=== PATIENT | female | born 1970 | race Caucasian/White ===

== ENCOUNTER → 2020-05-16 | Outpatient (CLI) | payer BC, OTHER | LOC: SJCVCIMAG 07:08 | PROVIDERS: ATTEND Podiatrist | DX: I70.203 Unspecified atherosclerosis of native arteries of extremities, bilateral legs (principal) ==

== ENCOUNTER → 2020-05-24 | Outpatient (CLI) | payer BC, OTHER ==
[~2020-05-24] VITALS: Ht 167.6 cm; Wt 147.4 kg
[~2020-05-24] MED LIST: ALEVE220 M1 PO; ALLEGRA ALLERG180 MG PO; BRINTELLIX20 MG PO; BUPROPION XL300 MG PO; LISINOPRIL20 MG PO; METFORMIN HCL500 M3 PO; NASACORT10.8 ML NARES; NUVIGIL250 MG PO; OLOPATADINE HC2.5 ML OPHTHALMIC; OMEPRAZOLE40 MG PO; REXULTI0.25 MG PO; SUPER THERAVIT1 EACH PO; SYNTHROID175 MCG PO; SYNTHROID200 MCG PO; VITAMIN D31250 MC1 PO; VYVANSE70 MG PO; XYREM500 MG/1 M PO
[2020-05-24 08:16] LABS: HEMATOCRIT 42.1 % (37.0-47.0); HEMOGLOBIN 13.8 gm/dL (12.0-15.0); MCH 26.8 pg (26.0-34.0); MCHC 32.8 g/dL (28.0-37.0); MCV 81.8 fL (80.0-100.0); RBC 5.15 mil/uL (4.20-5.00); RDW 13.9 % (10.5-14.5); WBC 5.9 thou/uL (4.0-11.0)
[2020-05-24 08:20] LABS: CALCIUM 9.2 mg/dL (8.5-10.1); POTASSIUM 3.6 mmol/L (3.5-5.1)
== END | disposition home or self-care (01) ==
LOC: CATH 07:30
PROVIDERS: ATTEND Nuclear Medicine Nuclear Cardiology
DX: E11.51 Type 2 diabetes mellitus with diabetic peripheral angiopathy without gangrene (principal); I70.213 Atherosclerosis of native arteries of extremities with intermittent claudication, bilateral legs; I70.1 Atherosclerosis of renal artery; I10 Essential (primary) hypertension; I25.10 Atherosclerotic heart disease of native coronary artery without angina pectoris; E03.9 Hypothyroidism, unspecified; G47.30 Sleep apnea, unspecified; F32.9 Major depressive disorder, single episode, unspecified; F41.9 Anxiety disorder, unspecified; K21.9 Gastro-esophageal reflux disease without esophagitis; Z98.890 Other specified postprocedural states; Z79.899 Other long term (current) drug therapy; Z88.0 Allergy status to penicillin; Z88.2 Allergy status to sulfonamides; Z88.8 Allergy status to other drugs, medicaments and biological substances

== ENCOUNTER → 2020-05-29 | Outpatient (CLI) | payer OTHER ==
[~2020-05-29] MED LIST changes: +ASA81BEC PO; +PLAVIX 75 MG TA75 M1 PO
== END ==
LOC: CAT 09:08
PROVIDERS: ATTEND Nuclear Medicine Nuclear Cardiology
DX: Z13.6 Encounter for screening for cardiovascular disorders (principal); I25.10 Atherosclerotic heart disease of native coronary artery without angina pectoris; E78.00 Pure hypercholesterolemia, unspecified

== ENCOUNTER → 2020-05-31 | Outpatient (CLI) | payer BC, OTHER ==
[~2020-05-31] VITALS: Ht 167.6 cm; Wt 147.4 kg
[2020-05-31 08:49] VITALS: BP 154/75
--- NOTE | 2020-05-31 15:16 | NUR ---
PT'S FACE IS FLUSHED RED THAT EXTENDS TO NECK. PT HAS LIGHT PINK COLOURING TO UPPER ABDOMEN WELL. PT HAS ALLERGIES TO PCN, CEFTIN, CODEINE, AND SULFA. PT DENIES ALLERGIES TO SHELLFISH, AND CANNOT REMEMBER IF SHE HAS EVER HAD CONTRAST DYE BEFORE. MEDS GIVEN PER OK BY DR HOLMAN. PT DENIES ANY ITCHING.
== END | disposition home or self-care (01) ==
LOC: CATH 07:41
PROVIDERS: ATTEND Nuclear Medicine Nuclear Cardiology
DX: I70.211 Atherosclerosis of native arteries of extremities with intermittent claudication, right leg (principal); M79.604 Pain in right leg; L60.8 Other nail disorders; I10 Essential (primary) hypertension; E11.9 Type 2 diabetes mellitus without complications; E03.9 Hypothyroidism, unspecified; F32.9 Major depressive disorder, single episode, unspecified; F41.9 Anxiety disorder, unspecified; K21.9 Gastro-esophageal reflux disease without esophagitis; E66.09 Other obesity due to excess calories; Z98.890 Other specified postprocedural states; Z79.899 Other long term (current) drug therapy; Z88.0 Allergy status to penicillin; Z88.2 Allergy status to sulfonamides; Z88.8 Allergy status to other drugs, medicaments and biological substances

== ENCOUNTER → 2020-07-04 | Outpatient (CLI) | payer BC, OTHER | LOC: SJCVCIMAG 09:36 | PROVIDERS: ATTEND Nuclear Medicine Nuclear Cardiology | DX: T82.856A Stenosis of peripheral vascular stent, initial encounter (principal); I65.23 Occlusion and stenosis of bilateral carotid arteries; I10 Essential (primary) hypertension; E11.9 Type 2 diabetes mellitus without complications; K21.9 Gastro-esophageal reflux disease without esophagitis; E03.9 Hypothyroidism, unspecified; Z86.16 Personal history of COVID-19; Z79.82 Long term (current) use of aspirin; Z79.899 Other long term (current) drug therapy; Z79.84 Long term (current) use of oral hypoglycemic drugs; Z88.0 Allergy status to penicillin; Z88.5 Allergy status to narcotic agent; Z88.1 Allergy status to other antibiotic agents; Z88.2 Allergy status to sulfonamides; Z95.828 Presence of other vascular implants and grafts; Y82.8 Other medical devices associated with adverse incidents; Y92.89 Other specified places as the place of occurrence of the external cause ==